=== PATIENT | male | born 1945 | race Caucasian/White ===

== ENCOUNTER 2025-04-02 15:43 | Inpatient (IN) | payer OTHER, MEDICAID, MEDICARE ==
[2025-04-02] VITALS (11 sets, daily range): BP systolic 114–131; BP diastolic 63–81; PULSE 74–85; RESP 17–51; TEMP 37.5856; O2SAT 98–99
[~2025-04-02] VITALS: Ht 165.1 cm; Wt 56.0 kg
[2025-04-02] MEDS: SODIUM CHLORIDE 0.9% 1,000 ML IV ONE ×2 (15:54→16:49)
[2025-04-02] MEDS ORDERED: VANCOMYCIN 1000MG/250ML 250 ML IV SCH (16:00)
[2025-04-02] MEDS: PIPERACILLIN/TAZO 3.375G/50ML 50 ML IV SCH (16:01)
[2025-04-02 16:10] LABS: BASOPHILS % 1.4 % (0.0-2.0); EOSINOPHILS % 3.2 % (0.0-5.0); HEMATOCRIT. 30.6 % (42.0-52.0); HEMOGLOBIN. 9.6 g/dL (14.0-18.0); LYMPHOCYTES % 32.9 % (20.0-50.0); MEAN PLATELET VOLUME 10.7 fl (7.4-10.4); MONOCYTES % 10.5 % (2.0-8.0); NEUTROPHILS % 52.0 % (40.0-76.0); PLATELET 215 x1000/uL (130-400); RED BLOOD CELL COUNT 2.96 mill/uL (4.7-6.1); RED CELL DISTRIBUTION WIDTH 16.7 % (11.6-14.6)
[2025-04-02] MEDS: VANCOMYCIN 1G PREMIX 200 ML IV NR (16:24)
[2025-04-02 16:28] LABS: CREATININE 1.2 mg/dL (0.6-1.3)
[2025-04-02 16:29] LABS: UREA NITROGEN BLOOD 19 mg/dL (9-23)
[2025-04-02 16:30] LABS: ASPARTATE AMINOTRANSFERASE 120 IU/L (<34); TROPONIN I HIGH SENSITIVITY 5 ng/L (3.0-53)
[2025-04-02 16:31] LABS: BILIRUBIN DIRECT 0.6 mg/dL (<=3.0); BILIRUBIN TOTAL 1.1 mg/dL (0.1-1.0); PROTEIN TOTAL 7.5 g/dL (6.0-8.3)
[2025-04-02 16:46] LABS: BG BASE EXCESS -3.4 mmol/L (-2.0-3.0); BG CARBOXYHEMOGLOBIN 1.1 % (0.5-1.5); BG DEOXYHEMOGLOBIN 0.3 % (0.0-5.0); BG FRACTION INSPIRED OXYGEN 100; BG HCO3 ACT 22.7 mmol/L (21.0-28.0); BG METHEMOGLOBIN 0.3 % (0.5-1.5); BG OXYGEN SATURATION 99.7 % (94.0-98.0); BG OXYHEMOGLOBIN 98.3 % (94.0-98.0); BG PCO2 45.6 mmHg (35.0-48.0); BG PH 7.314 (7.350-7.450); BG PO2 381.9 mmHg (83.0-108.0); BG SAMPLE SITE RIGHT RADIAL; BG TOTAL HEMOGLOBIN 9.1 g/dL (13.5-17.5); BG VENT MODE MASK - BIPAP; BG VENT RATE 20.0 set
[2025-04-02 18:24] LABS: INR 1.2
[2025-04-02] MEDS ORDERED: ACETAMINOPHEN 325MG TABLET PO PRN ×2 (21:15)
[2025-04-02] MEDS ORDERED: DEXTROSE 50% WATER 50ML SYRINGE IV PRN (21:15)
[2025-04-02] MEDS ORDERED: ONDANSETRON HCL 4MG/2ML INJ IV PRN (21:15)
[2025-04-02] MEDS ORDERED: MAGNESIUM/ALUMINUM HYDROXIDE/SIMETHICONE 30ML UDC PO PRN (21:15)
[2025-04-02] MEDS ORDERED: DOCUSATE SODIUM 100MG CAPSULE PO PRN (21:15)
[2025-04-02] MEDS ORDERED: IPRATROPIUM/ALBUTEROL 0.5-3(2.5)MG/3ML NEB HHN PRN (21:15)
[2025-04-03] VITALS (16 sets, daily range): BP systolic 107–140; BP diastolic 56–82; PULSE 71–119; RESP 20–48; TEMP 36.4–36.7; O2SAT 79–99
[2025-04-03] MEDS: LACTATED RINGERS 1,000 ML IV SCH
[2025-04-03] MEDS: AZITHROMYCIN 500MG/250ML 250 ML IV SCH ×2 (00:22→21:04)
[2025-04-03] MEDS: IPRATROPIUM/ALBUTEROL 0.5-3(2.5)MG/3ML NEB HHN SCH (03:15)
[2025-04-03] MEDS: VANCOMYCIN 500 MG in DEXT 5% WATER 100 ML IV SCH ×2 (04:32→13:13)
[2025-04-03] MEDS: BLOOD SUGAR DIAGNOSTIC STRIP TEST SCH (07:07)
[2025-04-03] MEDS: INSULIN LISPRO 100 UNITS/ML SUBCUT SCH (07:25)
[2025-04-03] MEDS: THIAMINE HCL 100MG TABLET PO SCH (09:41)
[2025-04-03 13:02] LABS: BASOPHILS % 0.7 % (0.0-2.0); EOSINOPHILS % 2.2 % (0.0-5.0); HEMATOCRIT. 26.1 % (42.0-52.0); HEMOGLOBIN. 8.5 g/dL (14.0-18.0); LYMPHOCYTES % 12.8 % (20.0-50.0); MEAN PLATELET VOLUME 10.5 fl (7.4-10.4); MONOCYTES % 10.8 % (2.0-8.0); NEUTROPHILS % 73.5 % (40.0-76.0); RED BLOOD CELL COUNT 2.60 mill/uL (4.7-6.1); RED CELL DISTRIBUTION WIDTH 16.1 % (11.6-14.6)
[2025-04-03 13:26] LABS: CREATININE 1.1 mg/dL (0.6-1.3); TRIGLYCERIDE 110 mg/dL (0-150); UREA NITROGEN BLOOD 17 mg/dL (9-23)
[2025-04-03 13:27] LABS: LDL CHOLESTEROL 152 mg/dL (5-100)
[2025-04-03 13:56] LABS: PLATELET 97 x1000/uL (130-400)
[2025-04-03] MEDS: PIPERACILLIN/TAZO 3.375G/50ML IV SCH (14:00)
[2025-04-03] MEDS: ATORVASTATIN CALCIUM 40MG TABLET PO SCH (21:05)
[2025-04-04] VITALS (9 sets, daily range): BP systolic 106–144; BP diastolic 60–99; PULSE 80–116; RESP 18–47; TEMP 36.6–37; O2SAT 94–100
[2025-04-04] MEDS: IPRATROPIUM/ALBUTEROL 0.5-3(2.5)MG/3ML NEB HHN SCH
[2025-04-04 04:56] LABS: CREATININE 1.2 mg/dL (0.6-1.3); UREA NITROGEN BLOOD 15.0 mg/dL (9-23)
[2025-04-04 07:01] LABS: BASOPHILS % 0.4 % (0.0-2.0); EOSINOPHILS % 2.2 % (0.0-5.0); HEMATOCRIT. 26.5 % (42.0-52.0); HEMOGLOBIN. 8.7 g/dL (14.0-18.0); LYMPHOCYTES % 12.5 % (20.0-50.0); MEAN PLATELET VOLUME 10.5 fl (7.4-10.4); MONOCYTES % 11.8 % (2.0-8.0); NEUTROPHILS % 73.1 % (40.0-76.0); PLATELET 115 x1000/uL (130-400); RED BLOOD CELL COUNT 2.65 mill/uL (4.7-6.1); RED CELL DISTRIBUTION WIDTH 16.2 % (11.6-14.6)
[2025-04-04 07:38] LABS: INFLUENZA TYPE A Presumptive Negative (Pres. Neg.)
[2025-04-04 07:39] LABS: INFLUENZA TYPE B Presumptive Negative (Pres. Neg.); RESPIRATORY SYNCYTIAL VIRUS Not Detected (Not Detectd)
[2025-04-04] MEDS: METOPROLOL SUCCINATE 50MG ER TABLET PO SCH (08:22)
[2025-04-04] MEDS: ASPIRIN 81MG TABLET PO SCH (08:22)
[2025-04-04] MEDS: SODIUM CHLORIDE 0.9% 1,000 ML IV SCH (10:47)
[2025-04-04 11:14] LABS: BG BASE EXCESS -1.0 mmol/L (-2.0-3.0); BG CARBOXYHEMOGLOBIN 1.1 % (0.5-1.5); BG DEOXYHEMOGLOBIN 3.3 % (0.0-5.0); BG FLOW(L/min) 4.50 L/min; BG FRACTION INSPIRED OXYGEN 38; BG HCO3 ACT 24.7 mmol/L (21.0-28.0); BG METHEMOGLOBIN 0.1 % (0.5-1.5); BG OXYGEN SATURATION 96.7 % (94.0-98.0); BG OXYHEMOGLOBIN 95.5 % (94.0-98.0); BG PCO2 45.7 mmHg (35.0-48.0); BG PH 7.351 (7.350-7.450); BG PO2 90.8 mmHg (83.0-108.0); BG SAMPLE SITE RIGHT RADIAL; BG TOTAL HEMOGLOBIN 9.9 g/dL (13.5-17.5); BG VENT MODE NASAL CANNULA
[2025-04-04] MEDS: GUAIFENESIN 200MG/10ML SUGAR FREE UDC PO PRN (17:57)
[2025-04-04] MEDS: BUDESONIDE 0.5MG/2ML NEB HHN SCH (20:06)
[2025-04-04] MEDS: VANCOMYCIN 1G PREMIX 200 ML IV SCH (22:29)
[2025-04-05] VITALS (8 sets, daily range): BP systolic 122–144; BP diastolic 71–78; PULSE 88–114; RESP 15–31; TEMP 36.4–36.7; O2SAT 90–97
[2025-04-05 06:54] LABS: BASOPHILS % 0.4 % (0.0-2.0); EOSINOPHILS % 3.0 % (0.0-5.0); HEMATOCRIT. 26.7 % (42.0-52.0); HEMOGLOBIN. 8.7 g/dL (14.0-18.0); LYMPHOCYTES % 10.8 % (20.0-50.0); MEAN PLATELET VOLUME 10.0 fl (7.4-10.4); MONOCYTES % 11.4 % (2.0-8.0); NEUTROPHILS % 74.4 % (40.0-76.0); PLATELET 154 x1000/uL (130-400); RED BLOOD CELL COUNT 2.65 mill/uL (4.7-6.1); RED CELL DISTRIBUTION WIDTH 16.2 % (11.6-14.6)
[2025-04-05 07:21] LABS: CREATININE 1.1 mg/dL (0.6-1.3); UREA NITROGEN BLOOD 14 mg/dL (9-23)
[2025-04-05 07:24] LABS: PHOSPHORUS 3.5 mg/dL (2.5-4.9)
[2025-04-05] MEDS: MAGNESIUM 2 G PREMIX 50 ML IV NR (08:21)
[2025-04-05] MEDS: GUAIFENESIN 600MG ER TABLET PO SCH (11:54)
[2025-04-05] MEDS ORDERED: IPRA3AMP9 HHN (17:08)
[2025-04-05] MEDS ORDERED: LIP40 PO (17:08)
[2025-04-05] MEDS ORDERED: DOXY100T28 MT (17:08)
[2025-04-05] MEDS ORDERED: METO-385 PO (17:08)
[2025-04-05] MEDS ORDERED: GUAI600T44 PO (17:08)
[2025-04-05] MEDS ORDERED: PULM50 HHN (17:08)
[2025-04-05] MEDS ORDERED: AMOX1TAB16 MT (17:08)
[2025-04-05] MEDS ORDERED: THIA100T72 PO (17:08)
[2025-04-05] MEDS ORDERED: ASPI-1160 PO (17:08)
== END 2025-04-05 18:10 | disposition home or self-care (01) | DRG 871 ==
LOC: ER 15:43 → 5EST 18:55 → EDBEDREQSVC 18:58 → EDBEDREQTM 18:58 → EDBEDREQ 18:58 → ENRESERV 20:26 → 3WST 04-04 05:06
PROVIDERS: ADMIT Internal Medicine; ATTEND Internal Medicine
PROC: 5A09357 Assistance with Respiratory Ventilation, Less than 24 Consecutive Hours, Continuous Positive Airway Pressure (ICD-10-PCS; principal; 2025-04-02)
DX: A41.9 Sepsis, unspecified organism (principal); J18.9 Pneumonia, unspecified organism; J96.21 Acute and chronic respiratory failure with hypoxia; J47.0 Bronchiectasis with acute lower respiratory infection; J94.8 Other specified pleural conditions; E87.20 Acidosis, unspecified; I25.10 Atherosclerotic heart disease of native coronary artery without angina pectoris; E11.9 Type 2 diabetes mellitus without complications; I10 Essential (primary) hypertension; Z95.5 Presence of coronary angioplasty implant and graft; Z79.4 Long term (current) use of insulin; Z87.01 Personal history of pneumonia (recurrent)
CPT/HCPCS: 36415; 36600; 71045; 71275; 80048; 80061; 80076; 80202; 82375; 82805; 82962; 83036; 83605; 83735; 83880; 84100; 84145; 84443; 84484; 85025; 85379; 87070; 87420; 87804; 93005; 93970; 94070; 94640; 94660; 94664; 98960; 99291; J0456; J1815; J2543; J3373; J3475; J7030; J7060; J7626

== ENCOUNTER 2025-04-06 17:36 | Inpatient (IN) | payer OTHER, MEDICAID, MEDICARE ==
[~2025-04-06] VITALS: Ht 170.2 cm; Wt 54.0 kg
[~2025-04-06 17:36] MED LIST: AMOX1TAB16 MT; ASPI-1160 PO; GUAI600T44 PO; IPRA3AMP9 HHN; LIP40 PO; METO-385 PO; PULM50 HHN; THIA100T72 PO
[2025-04-06 17:42] VITALS: O2SAT 81
[2025-04-06 17:45] VITALS: RESP 21
[2025-04-06 18:24] LABS: HEMATOCRIT. 27.9 % (42.0-52.0); HEMOGLOBIN. 8.5 g/dL (14.0-18.0); MEAN PLATELET VOLUME 10.2 fl (7.4-10.4); PLATELET 205 x1000/uL (130-400); RED BLOOD CELL COUNT 2.69 mill/uL (4.7-6.1); RED CELL DISTRIBUTION WIDTH 16.8 % (11.6-14.6)
[2025-04-06 18:41] LABS: CREATININE 1.3 mg/dL (0.6-1.3); TROPONIN I HIGH SENSITIVITY 25 ng/L (3.0-53); UREA NITROGEN BLOOD 20 mg/dL (9-23)
[2025-04-06 19:10] LABS: BG BASE EXCESS -3.3 mmol/L (-2.0-3.0); BG CARBOXYHEMOGLOBIN 1.8 % (0.5-1.5); BG DEOXYHEMOGLOBIN 0.3 % (0.0-5.0); BG FRACTION INSPIRED OXYGEN 100; BG HCO3 ACT 26.0 mmol/L (21.0-28.0); BG METHEMOGLOBIN 0.2 % (0.5-1.5); BG OXYGEN SATURATION 99.7 % (94.0-98.0); BG OXYHEMOGLOBIN 97.7 % (94.0-98.0); BG PCO2 74.5 mmHg (35.0-48.0); BG PH 7.160 (7.350-7.450); BG PO2 182.9 mmHg (83.0-108.0); BG SAMPLE SITE RIGHT RADIAL; BG TOTAL HEMOGLOBIN 9.1 g/dL (13.5-17.5); BG VENT MODE MASK - BIPAP; BG VENT RATE 20.0 set
[2025-04-06 19:17] LABS: LYMPHOCYTES % MANUAL 6.0 % (20.0-50.0); MONOCYTES % MANUAL 11.0 % (2.0-8.0); NEUTROPHILS % MANUAL 83.0 % (45.0-75.0); PLATELET ESTIMATE NORMAL
[2025-04-06] MEDS: LEVOFLOXACIN 500MG PREMIX 100 ML IV ONE (20:02)
[2025-04-06 21:13] LABS: TROPONIN I HIGH SENSITIVITY 21 ng/L (3.0-53)
[2025-04-06] MEDS: FUROSEMIDE 40MG/4ML VIAL IVP ONE (22:28)
[2025-04-06 23:59] VITALS: BP 97/61; PULSE 104; RESP 21; TEMP 36.9184
[2025-04-07] VITALS (20 sets, daily range): BP systolic 99–144; BP diastolic 55–79; PULSE 87–117; RESP 19–46; TEMP 35.9–36.7; O2SAT 94–99
[2025-04-07] MEDS ORDERED: ACETAMINOPHEN 325MG TABLET PO PRN (00:45)
[2025-04-07] MEDS ORDERED: CLONIDINE 0.1MG TABLET PO PRN (00:45)
[2025-04-07] MEDS ORDERED: ONDANSETRON HCL 4MG/2ML INJ IV PRN (00:45)
[2025-04-07] MEDS ORDERED: DOCUSATE SODIUM 100MG CAPSULE PO PRN (00:45)
[2025-04-07] MEDS: IPRATROPIUM/ALBUTEROL 0.5-3(2.5)MG/3ML NEB HHN PRN (01:36)
[2025-04-07 01:41] LABS: CLARITY URINE CLEAR (CLEAR); COLOR URINE YELLOW (YELLOW); GLUCOSE URINE NEGATIVE (NEGATIVE); KETONES URINE NEGATIVE (NEGATIVE); LEUKOCYTE ESTERASE URINE NEGATIVE (NEGATIVE); NITRITE URINE NEGATIVE (NEGATIVE); OCCULT BLOOD URINE NEGATIVE (NEGATIVE); PH URINE 5.5 (4.5-8.0); PROTEIN URINE TRACE (NEGATIVE); SPECIFIC GRAVITY URINE 1.013 (1.005-1.030); UROBILINOGEN URINE 0.2 E.U./dL (0.2-1.0)
[2025-04-07 01:49] LABS: *AMPHETAMINES SCREEN URINE NEGATIVE (NEGATIVE); *BARBITURATES SCREEN URINE NEGATIVE (NEGATIVE); *BENZODIAZEPINES SCREEN URINE NEGATIVE (NEGATIVE); *COCAINE SCREEN URINE NEGATIVE (NEGATIVE); CANNABINOID URINE SCREEN PRESUMPTIVE POSITIVE (NEGATIVE); ECSTASY MDMA SCREEN URINE NEGATIVE (NEGATIVE); METHADONE URINE SCREEN NEGATIVE (NEGATIVE); OPIATES URINE SCREEN NEGATIVE (NEGATIVE); PHENCYCLIDINE URINE SCREEN NEGATIVE (NEGATIVE)
[2025-04-07 02:03] LABS: BACTERIA URINE 1+; RBC URINE 0-2 /hpf (0-2); SQUAMOUS EPITHELIAL CELL URINE 1+ /lpf (RARE/1+); WBC URINE NONE SEEN /hpf (0-2)
[2025-04-07 06:41] LABS: CREATININE 1.4 mg/dL (0.6-1.3)
[2025-04-07 06:42] LABS: UREA NITROGEN BLOOD 24 mg/dL (9-23)
[2025-04-07 06:43] LABS: ASPARTATE AMINOTRANSFERASE 117 IU/L (<34)
[2025-04-07 06:44] LABS: BILIRUBIN TOTAL 1.3 mg/dL (0.1-1.0); PROTEIN TOTAL 7.0 g/dL (6.0-8.3)
[2025-04-07 06:53] LABS: HEMATOCRIT. 26.4 % (42.0-52.0); HEMOGLOBIN. 8.3 g/dL (14.0-18.0); MEAN PLATELET VOLUME 10.2 fl (7.4-10.4); PLATELET 133 x1000/uL (130-400); RED BLOOD CELL COUNT 2.56 mill/uL (4.7-6.1); RED CELL DISTRIBUTION WIDTH 16.5 % (11.6-14.6)
[2025-04-07] MEDS ORDERED: CEFTRIAXONE 1GM/50ML 50 ML IV SCH (07:30)
[2025-04-07] MEDS ORDERED: AZITHROMYCIN 250 MG in DEXT 5% WATER 250 ML IV SCH (07:30)
[2025-04-07] MEDS: IPRATROPIUM/ALBUTEROL 0.5-3(2.5)MG/3ML NEB HHN SCH (08:29)
[2025-04-07] MEDS: GUAIFENESIN 600MG ER TABLET PO SCH (09:58)
[2025-04-07] MEDS: ASPIRIN 81MG TABLET PO SCH (09:58)
[2025-04-07] MEDS: METOPROLOL SUCCINATE 50MG ER TABLET PO SCH (09:59)
[2025-04-07] MEDS: THIAMINE HCL 100MG TABLET PO SCH (10:00)
[2025-04-07] MEDS: SODIUM CHLORIDE 0.45% 1,000 ML IV SCH (10:03)
[2025-04-07] MEDS: AZITHROMYCIN 500MG in D5W 250ML IV SCH (10:03)
[2025-04-07 10:18] LABS: BG BASE EXCESS -3.1 mmol/L (-2.0-3.0); BG CARBOXYHEMOGLOBIN 0.3 % (0.5-1.5); BG DEOXYHEMOGLOBIN 5.5 % (0.0-5.0); BG FRACTION INSPIRED OXYGEN 60; BG HCO3 ACT 23.3 mmol/L (21.0-28.0); BG METHEMOGLOBIN 0.3 % (0.5-1.5); BG OXYGEN SATURATION 94.5 % (94.0-98.0); BG OXYHEMOGLOBIN 93.9 % (94.0-98.0); BG PCO2 47.8 mmHg (35.0-48.0); BG PH 7.305 (7.350-7.450); BG PO2 79.8 mmHg (83.0-108.0); BG SAMPLE SITE RIGHT RADIAL; BG TOTAL HEMOGLOBIN 9.7 g/dL (13.5-17.5); BG VENT MODE MASK - BIPAP; BG VENT RATE 20.0 set
[2025-04-07] MEDS ORDERED: DEXTROSE 50% WATER 50ML SYRINGE IV PRN (12:30)
[2025-04-07] MEDS: BLOOD SUGAR DIAGNOSTIC STRIP TEST SCH (12:55)
[2025-04-07] MEDS: FUROSEMIDE 20MG/2ML VIAL IVP SCH (12:56)
[2025-04-07] MEDS: CEFTRIAXONE 1GM/50ML 50ML IV SCH (12:57)
[2025-04-07] MEDS: INSULIN LISPRO 100 UNITS/ML SUBCUT SCH (13:15)
[2025-04-07] MEDS: METHYLPREDNISOLONE SOD SUCC 125MG/2ML (ACT-O-VIAL) IV SCH (13:15)
[2025-04-07] MEDS: BUDESONIDE 0.5MG/2ML NEB HHN SCH (14:11)
[2025-04-07 21:01] LABS: LYMPHOCYTES % MANUAL 8.0 % (20.0-50.0); MONOCYTES % MANUAL 13.0 % (2.0-8.0); NEUTROPHILS % MANUAL 79.0 % (45.0-75.0); PLATELET ESTIMATE NORMAL
[2025-04-07] MEDS: ATORVASTATIN CALCIUM 40MG TABLET PO SCH (21:26)
[2025-04-08] VITALS (22 sets, daily range): BP systolic 112–150; BP diastolic 61–87; PULSE 95–118; RESP 19–43; TEMP 36.2–37.1; O2SAT 91–99
[2025-04-08 07:42] LABS: HEMATOCRIT. 26.7 % (42.0-52.0); HEMOGLOBIN. 8.6 g/dL (14.0-18.0); MEAN PLATELET VOLUME 10.0 fl (7.4-10.4); PLATELET 111 x1000/uL (130-400); RED BLOOD CELL COUNT 2.67 mill/uL (4.7-6.1); RED CELL DISTRIBUTION WIDTH 16.0 % (11.6-14.6)
[2025-04-08 08:00] LABS: CREATININE 1.5 mg/dL (0.6-1.3)
[2025-04-08 08:01] LABS: UREA NITROGEN BLOOD 33.0 mg/dL (9-23)
[2025-04-08 09:41] LABS: BG BASE EXCESS -2.7 mmol/L (-2.0-3.0); BG CARBOXYHEMOGLOBIN 0.6 % (0.5-1.5); BG DEOXYHEMOGLOBIN 7.4 % (0.0-5.0); BG FRACTION INSPIRED OXYGEN 60; BG HCO3 ACT 24.1 mmol/L (21.0-28.0); BG METHEMOGLOBIN 0.3 % (0.5-1.5); BG OXYGEN SATURATION 92.5 % (94.0-98.0); BG OXYHEMOGLOBIN 91.7 % (94.0-98.0); BG PCO2 51.5 mmHg (35.0-48.0); BG PH 7.288 (7.350-7.450); BG PO2 73.5 mmHg (83.0-108.0); BG SAMPLE SITE RIGHT RADIAL; BG TOTAL HEMOGLOBIN 9.6 g/dL (13.5-17.5); BG TOTAL RESPIRATORY RATE 41 b/min; BG VENT MODE MASK - BIPAP; BG VENT RATE 16.0 set
[2025-04-08 10:54] LABS: BAND% 1.0 % (1.0-6.0); LYMPHOCYTES % MANUAL 1.0 % (20.0-50.0); MONOCYTES % MANUAL 2.0 % (2.0-8.0); NEUTROPHILS % MANUAL 96.0 % (45.0-75.0); PLATELET ESTIMATE SLIGHTLY DECREASED
[2025-04-08] MEDS ORDERED: CEFEPIME 2,000 MG in DEXT 5% WATER 100 ML IV SCH (14:00)
[2025-04-08] MEDS: CEFEPIME 2GM/100ML 100 ML IV SCH (14:07)
[2025-04-08 14:19] LABS: BG BASE EXCESS -2.9 mmol/L (-2.0-3.0); BG CARBOXYHEMOGLOBIN 0.7 % (0.5-1.5); BG DEOXYHEMOGLOBIN 0.3 % (0.0-5.0); BG FRACTION INSPIRED OXYGEN 100; BG HCO3 ACT 24.2 mmol/L (21.0-28.0); BG METHEMOGLOBIN 0.3 % (0.5-1.5); BG OXYGEN SATURATION 99.7 % (94.0-98.0); BG OXYHEMOGLOBIN 98.7 % (94.0-98.0); BG PCO2 54.5 mmHg (35.0-48.0); BG PH 7.266 (7.350-7.450); BG PO2 174.4 mmHg (83.0-108.0); BG SAMPLE SITE RIGHT RADIAL; BG TOTAL HEMOGLOBIN 8.9 g/dL (13.5-17.5); BG TOTAL RESPIRATORY RATE 29 b/min; BG VENT MODE MASK - BIPAP; BG VENT RATE 25.0 set
[2025-04-08] MEDS: LORAZEPAM 0.5MG TABLET PO NR (14:55)
[2025-04-09] VITALS (19 sets, daily range): BP systolic 112–141; BP diastolic 61–85; PULSE 95–112; RESP 22–37; TEMP 36.2–36.7; O2SAT 76–99
[2025-04-09] MEDS: ACETAMINOPHEN 325MG TABLET PO PRN (01:54)
[2025-04-09 07:26] LABS: HEMATOCRIT. 24.1 % (42.0-52.0); HEMOGLOBIN. 7.6 g/dL (14.0-18.0); MEAN PLATELET VOLUME 9.6 fl (7.4-10.4); PLATELET 107 x1000/uL (130-400); RED BLOOD CELL COUNT 2.40 mill/uL (4.7-6.1); RED CELL DISTRIBUTION WIDTH 16.5 % (11.6-14.6)
[2025-04-09 07:40] LABS: CREATININE 1.6 mg/dL (0.6-1.3); UREA NITROGEN BLOOD 42.0 mg/dL (9-23)
[2025-04-09] MEDS: METOPROLOL SUCCINATE 25MG ER TABLET PO SCH (09:00)
[2025-04-09 13:03] LABS: CREATININE 1.6 mg/dL (0.6-1.3)
[2025-04-09 13:04] LABS: UREA NITROGEN BLOOD 45 mg/dL (9-23)
[2025-04-09 13:05] LABS: ASPARTATE AMINOTRANSFERASE 131 IU/L (<34)
[2025-04-09 13:06] LABS: BILIRUBIN TOTAL 1.2 mg/dL (0.1-1.0); PHOSPHORUS 5.1 mg/dL (2.5-4.9); PROTEIN TOTAL 7.4 g/dL (6.0-8.3)
[2025-04-09 13:32] LABS: BG BASE EXCESS 1.0 mmol/L (-2.0-3.0); BG CARBOXYHEMOGLOBIN 0.6 % (0.5-1.5); BG DEOXYHEMOGLOBIN 1.0 % (0.0-5.0); BG FRACTION INSPIRED OXYGEN 100; BG HCO3 ACT 28.6 mmol/L (21.0-28.0); BG METHEMOGLOBIN 0.3 % (0.5-1.5); BG OXYGEN SATURATION 99.0 % (94.0-98.0); BG OXYHEMOGLOBIN 98.1 % (94.0-98.0); BG PCO2 64.0 mmHg (35.0-48.0); BG PH 7.268 (7.350-7.450); BG PO2 127.1 mmHg (83.0-108.0); BG SAMPLE SITE LEFT BRACHIAL; BG TOTAL HEMOGLOBIN 8.9 g/dL (13.5-17.5); BG TOTAL RESPIRATORY RATE 27 b/min; BG VENT MODE MASK - BIPAP; BG VENT RATE 25.0 set
[2025-04-09 16:37] LABS: LYMPHOCYTES % MANUAL 5.0 % (20.0-50.0); MONOCYTES % MANUAL 7.0 % (2.0-8.0); NEUTROPHILS % MANUAL 88.0 % (45.0-75.0); PLATELET ESTIMATE SLIGHTLY DECREASED
[2025-04-09] MEDS ORDERED: HYDROMORPHONE HCL/PF 1MG/ML INJ IV PRN (20:30)
[2025-04-09] MEDS ORDERED: LABETALOL 5MG/ML 4ML INJ IV PRN (20:30)
[2025-04-10] VITALS (12 sets, daily range): BP systolic 51–150; BP diastolic 41–94; PULSE 59–113; RESP 19–33; TEMP 36.4–36.6; O2SAT 67–97
[2025-04-10] MEDS: FUROSEMIDE 40MG/4ML VIAL IVP SCH (09:00)
[2025-04-10 10:51] LABS: BG BASE EXCESS 1.6 mmol/L (-2.0-3.0); BG CARBOXYHEMOGLOBIN 1.3 % (0.5-1.5); BG DEOXYHEMOGLOBIN 3.0 % (0.0-5.0); BG FRACTION INSPIRED OXYGEN 100; BG HCO3 ACT 29.6 mmol/L (21.0-28.0); BG METHEMOGLOBIN 0.0 % (0.5-1.5); BG OXYGEN SATURATION 97.0 % (94.0-98.0); BG OXYHEMOGLOBIN 95.7 % (94.0-98.0); BG PCO2 69.0 mmHg (35.0-48.0); BG PH 7.250 (7.350-7.450); BG PO2 97.0 mmHg (83.0-108.0); BG SAMPLE SITE LEFT BRACHIAL; BG TOTAL HEMOGLOBIN 8.3 g/dL (13.5-17.5); BG VENT MODE MASK - BIPAP; BG VENT RATE 25.0 set
[2025-04-10] MEDS ORDERED: MORPHINE SULFATE 4 MG/ML INJ (FOR IV/IM USE) IV PRN ×2 (13:15→13:30)
[2025-04-10] MEDS ORDERED: MORPHINE SULFATE/PF 1 MG/ML 100 MG in BAG 1 EACH IV PRN (13:15)
[2025-04-10] MEDS ORDERED: MORPHINE SULFATE 4 MG/ML INJ (FOR IV/IM USE) IM NR (13:15)
[2025-04-10] MEDS ORDERED: MORPHINE SULFATE 4 MG/ML INJ (FOR IV/IM USE) IV NR (13:30)
[2025-04-10] MEDS ORDERED: NALOXONE HCL 0.4MG/ML VIAL IV PRN (13:45)
[2025-04-10] MEDS: MORPHINE SULFATE 10 MG/ML INJ (NOT FOR IM USE) IV SCH (13:52)
[2025-04-10] MEDS ORDERED: ACETYLCYSTEINE 200MG/ML 20% VIAL 4ML INH SCH (14:00)
[2025-04-10] MEDS: MORPHINE (DRIP)100 MG in DEXT 5% WATER 100 ML IV PRN (14:30)
[2025-04-10] MEDS ORDERED: GUAIFENESIN 600MG ER TABLET PO SCH (21:00)
[2025-04-13] MEDS ORDERED: SCOPOLAMINE HYDROBROMIDE PATCH 72HR TD SCH (09:00)
== END 2025-04-10 20:54 | DRG 871 ==
LOC: ER 17:36 → 5EST 21:32 → ENRESERV 22:06
PROVIDERS: ADMIT Family Medicine Adult Medicine; ATTEND Family Medicine Adult Medicine
PROC: 5A09357 Assistance with Respiratory Ventilation, Less than 24 Consecutive Hours, Continuous Positive Airway Pressure (ICD-10-PCS; principal; 2025-04-06)
PROC: 5A09357 Assistance with Respiratory Ventilation, Less than 24 Consecutive Hours, Continuous Positive Airway Pressure (ICD-10-PCS; 2025-04-07)
PROC: 5A09357 Assistance with Respiratory Ventilation, Less than 24 Consecutive Hours, Continuous Positive Airway Pressure (ICD-10-PCS; 2025-04-08)
PROC: 5A0935A Assistance with Respiratory Ventilation, Less than 24 Consecutive Hours, High Flow/Velocity Cannula (ICD-10-PCS; 2025-04-08)
PROC: 5A09357 Assistance with Respiratory Ventilation, Less than 24 Consecutive Hours, Continuous Positive Airway Pressure (ICD-10-PCS; 2025-04-09)
DX: A41.9 Sepsis, unspecified organism (principal); J18.9 Pneumonia, unspecified organism; J96.21 Acute and chronic respiratory failure with hypoxia; J96.22 Acute and chronic respiratory failure with hypercapnia; J44.0 Chronic obstructive pulmonary disease with (acute) lower respiratory infection; N17.9 Acute kidney failure, unspecified; D61.818 Other pancytopenia; I11.0 Hypertensive heart disease with heart failure; I50.9 Heart failure, unspecified; I25.10 Atherosclerotic heart disease of native coronary artery without angina pectoris; E78.5 Hyperlipidemia, unspecified; E11.9 Type 2 diabetes mellitus without complications; Z99.81 Dependence on supplemental oxygen; Z66 Do not resuscitate; Z79.82 Long term (current) use of aspirin; Z95.5 Presence of coronary angioplasty implant and graft; Z51.5 Encounter for palliative care; Z87.01 Personal history of pneumonia (recurrent)
CPT/HCPCS: 36415; 36600; 71045; 76604; 76770; 80048; 80053; 80305; 81003; 82375; 82550; 82805; 82962; 83036; 83605; 83735; 83880; 84100; 84145; 84484; 85025; 93005; 94070; 94640; 94660; 94664; 96365; 98960; 99285; J0456; J0692; J0696; J1815; J1938; J1956; J2270; J2919; J3490; J7060; J7626